=== PATIENT | male | born 1990 | race Asian ===

== ENCOUNTER 2017-04-22 17:07 | Emergency (ER) | payer OTHER ==
[~2017-04-22] VITALS: Ht 170.2 cm; Wt 72.9 kg
[2017-04-22] MEDS ORDERED: PENI250T57 PO (17:18)
[2017-04-22] MEDS ORDERED: IBUP-1022 PO (17:18)
[2017-04-22] MEDS ORDERED: KETOROLAC 30 MG/ML VIAL (J1885) IV ONE (18:00)
[2017-04-22] MEDS ORDERED: NS 1,000 ML IV ONE (18:00)
[2017-04-22] MEDS ORDERED: MAGICMW MT (18:29)
[2017-04-22 18:53] VITALS: BP 120/65
== END 2017-04-22 19:11 | disposition home or self-care (01) ==
LOC: M ED 17:07
DX: J02.9 Acute pharyngitis, unspecified (principal)
CPT/HCPCS: 87252; 96374; 99283; J1885